=== PATIENT | female | born 1995 | race Caucasian/White ===

== ENCOUNTER → 2016-04-21 | Outpatient (CLI) | payer BC | LOC: MOB LAB 15:04 | PROVIDERS: ATTEND Obstetrics & Gynecology | DX: Z11.3 Encounter for screening for infections with a predominantly sexual mode of transmission (principal); N76.0 Acute vaginitis | CPT/HCPCS: 87491; 87591 ==

== ENCOUNTER 2018-05-25 12:47 | Inpatient (IN) ==
[2018-05-25] MEDS ORDERED: TERBUTALINE SULFATE 1 MG/1 ML SDV SUBCUT PRN (18:05)
[2018-05-25] MEDS ORDERED: NALOXONE 0.4 MG/1 ML VIAL IVP PRN (18:05)
[2018-05-25] MEDS ORDERED: CALCIUM CARBONATE 500 MG (TUMS) CHEWABLE TABLET PO PRN (18:05)
[2018-05-25] MEDS ORDERED: LIDOCAINE W/ SODIUM BICARB 0.5 ML SYR SUBD PRN (18:05)
[2018-05-25] MEDS ORDERED: Naloxone Inj 0.01 MG in Sodium Chloride 0.9% vial 1 ML IVP PRN (18:05)
[2018-05-25] MEDS ORDERED: LIDOCAINE HCL 2 % 10 ML JELLY URO-JECT TOPICAL PRN (18:05)
[2018-05-25] MEDS ORDERED: CefOXitin Inj 2 GM in Sodium Chloride 0.9% 100 ML IV PRN (18:05)
[2018-05-25] MEDS ORDERED: ePHEDrine Inj 50 MG/ML AMP IVP PRN (18:05)
[2018-05-25] MEDS ORDERED: diphenhydrAMINE 50 MG/1 ML VIAL IVP PRN (18:05)
[2018-05-25] MEDS ORDERED: ONDANSETRON 4 MG/2 ML VIAL IVP PRN (18:05)
[2018-05-25] MEDS ORDERED: BUTORPHANOL TARTRATE 2 MG/1 ML VIAL IVP PRN (18:05)
[2018-05-25] MEDS ORDERED: Nalbuphine Inj 20 MG/ML Ampule IVP PRN (18:05)
[2018-05-25] MEDS ORDERED: OXYTOCIN 10 UNIT/1 ML IM PRN (18:05)
[2018-05-25] MEDS ORDERED: Lidocaine 1% 10 MG/ML - 20 ML VIAL SUBCUT PRN (18:05)
[2018-05-25] MEDS ORDERED: CITRIC ACID/SODIUM CITRATE 30 ML CUP PO PRN (18:05)
[2018-05-25] MEDS ORDERED: METHYLERGONOVINE MALEATE 0.2 MG/1 ML VIAL IM PRN (18:05)
[2018-05-25] MEDS ORDERED: Carboprost Inj 250 MCG/ML AMP IM PRN (18:05)
[2018-05-25] MEDS ORDERED: Zolpidem Tab 5 MG TAB PO PRN (18:05)
[2018-05-25] MEDS ORDERED: MISOPROSTOL 200 MCG TABLET RECTAL PRN (18:05)
[2018-05-25] MEDS ORDERED: Metoclopramide Inj 10 MG/2 ML VIAL IV PRN (18:05)
[2018-05-25] MEDS ORDERED: Phenylephrine Inj 50 MCG in Sodium Chloride 0.9% vial 0.5 ML IVP PRN (18:05)
[2018-05-25] MEDS ORDERED: FAMOTIDINE 20 MG/2 ML VIAL IVP PRN ×2 (18:05)
[2018-05-25] MEDS ORDERED: Oxytocin 20 Units + LR 20 UNIT/1,000 ML BAG IV SCH (18:15)
[2018-05-25] MEDS ORDERED: Lactated Ringers-OB Dept 1,000 ML PRIMARY IV SCH (18:15)
[2018-05-25 18:57] LABS: Hematocrit [HCT] 34.2 % (37.0-47.0); MEAN CORPUSCULAR HEMOGLOBIN 28.6 PG (27-31); MEAN CORPUSCULAR HGB CONC 32.2 g/dL (33-37); MEAN CORPUSCULAR VOLUME 89.1 FL (81-99); RED BLOOD COUNT 3.84 10^6/uL (4.20-5.40)
[2018-05-25] MEDS: Misoprostol Tab 100 MCG TAB VAGINAL PRN ×2 (19:24→23:15)
[2018-05-26] MEDS: Misoprostol Tab 100 MCG TAB VAGINAL PRN (03:27)
[2018-05-26] MEDS: fentaNYL Inj 100 MCG/2 ML VIAL IV PRN ×7 (04:25→16:13)
--- NOTE | 2018-05-26 06:57 | OB.PROGRES ---
Interval History: The patient is a 22-year-old at 39 weeks gestation today who is admitted last evening for cervical ripening for an elective induction. I saw the patient yesterday in my office and her cervix was closed or perhaps just a fingertip. The patient and I had discussed elective induction of labor several weeks ago and then the patient brought up over the past couple weeks. Yesterday I asked the patient or inform the patient that she did not have to have an elective induction of labor and could wait another week to determine if there would be cervical change. The patient was adamant that she desired elective induction of labor with cervical ripening. The patient's has essentially been uncomplicated. Patient did receive the influenza vaccine. The patient stated that the father of the baby was different than the father of the baby 5 years ago. The father of the baby was 10 pounds at . The patient does believe that this baby is bigger than her baby who she delivered in November 2012. This baby is a boy and her previous delivery was a baby girl. Past medical history GERD. No hypertension, no asthma, no diabetes Past surgical history noncontributory No known drug allergies Tobacco-patient quit 6 months ago. Patient currently Vapes and is trying to quit now that she is . Rare alcohol but none since she found out she was . No drugs. 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 Patient has had chlamydia couple times and has been treated. OB history vaginal delivery x 1 of a 7 lbs. 5 oz. child. November 2012. No complications. Patient was taking Venlaxafine for anxiety and depression. Patient currently is doing well without SI or HI and is not taking medicine. No significant family history. Objective - Cervical Exam Cervical Exam: 04/18/-3 cephalic per nurse exam at about 0330 hrs. this morning. [place]: Uterine irritability or contractions every 2-3 minutes. The patient has received 3 doses of Cytotec-25 g per vagina since admission last evening. Heart Rate Interpretation Category: Category I - Labs CBC and BMP: 05/25/18 18:50 - Vital Signs Last Taken Vital Signs: Vital Signs - Last Taken Temperature 97.4 F 05/26/18 03:34 Pulse Rate 76 05/26/18 04:36 Respiratory Rate 16 05/26/18 04:36 Blood Pressure 113/71 05/26/18 04:36 Pulse Ox 98 05/26/18 04:36 - Additional Details Additional Details: The patient is currently sleeping and I did not wake her up. Assessment and Plan - Assessment / Plan Additional Assessment/Plan Details: Assessment: IUP 39 weeks gestation for elective induction of labor with cervical ripening. Category 1 heart rate tracing. There has been some change with the cervix from the posterior position 2 mid position and the cervix was 1 cm dilated according to the nurse at 0330 hrs. this morning. The patient's cervix was closed yesterday morning by my exam. I have not examined the patient this morning. Group B strep negative Rh+ Plan: Continue cervical ripening Continue to assess cervix intermittently Continue to observe heart rate tracing which is currently category 1 and h as been category 1 The patient and I did discuss that induction of labor with cervical ripening at 39 weeks gestation for elective reasons is documented in the literature and is safe. The patient has had a spontaneous vaginal delivery in 2012 with a different father of the baby. This father of the baby was 10 pounds at himself. The patient thinks that this baby is bigger than her baby girl who was delivered in 2013 and was 7 lbs. 5 oz. We did discuss cervical ripening and that slow cervical ripening with Cytotec was most prudent. We also discussed that if there was not significant cervical change and the heart tracing was category 1, the patient could elect to stop cervical ripening and induction of labor and go home if there was no significant progress. We discussed this previously in my office. We also discussed the risk of section for or maternal indications. We will continue to observe the patient closely.
--- NOTE | 2018-05-26 11:05 | OB.PROGRES ---
Interval History: The patient states that she can feel the contractions fairly strong every 2-3 minutes. This was relayed to me via the nurse. Objective - Cervical Exam Cervical Exam: -/-3 cephalic -my exam around 0910 hrs. as morning. Cervix was moderately firm and posterior to mid position [place]: Contractions every 2-4 minutes. Some couplets Heart Rate Interpretation Category: Category I - Labs CBC and BMP: 05/25/18 18:50 - Vital Signs Last Taken Vital Signs: Vital Signs - Last Taken Temperature 97.5 F 05/26/18 09:15 Pulse Rate 81 05/26/18 09:15 Respiratory Rate 16 05/26/18 09:15 Blood Pressure 117/67 05/26/18 09:15 Pulse Ox 98 05/26/18 09:15 Assessment and Plan - Assessment / Plan Additional Assessment/Plan Details: Assessment IUP 39 weeks for cervical ripening and induction of labor. There has been a small amount of cervical change since last evening when the cervix was closed. The patient has received 3 doses of Cytotec and the patient continues to contract although irregular. Plan: I have been waiting for the contractions to decrease in frequency to administer another dose of Cytotec. However, the contractions are not decrea sing in frequency currently. Pitocin augmentation starting at 1 milliunit and using Pitocin as a cervical ripening agent. I do not want to increase the Pitocin for labor currently. Cervical ripening still needs to occur. Continue to observe closely
[2018-05-26] MEDS ORDERED: Oxytocin 20 Units + LR 20 UNIT/1,000 ML BAG IV SCH (11:15)
[2018-05-26 14:13] VITALS: O2SAT 98
--- NOTE | 2018-05-26 16:58 | OB.PROGRES ---
Interval History: The patient has a lot of back pain with contractions and even without contractions. No gush of fluid. Objective - Cervical Exam Cervical Exam: 1-/-3 with cervix slightly less firm then this morning. [place]: Every 2-4 minutes with couplets Heart Rate Interpretation Category: Category I - Labs CBC and BMP: 05/25/18 18:50 - Vital Signs Last Taken Vital Signs: Vital Signs - Last Taken Temperature 97.5 F 05/26/18 14:40 Pulse Rate 64 05/26/18 15:00 Respiratory Rate 16 05/26/18 15:00 Blood Pressure 113/63 05/26/18 15:00 Pulse Ox 98 05/26/18 15:00 Assessment and Plan - Assessment / Plan Additional Assessment/Plan Details: Assessment: IUP 39 weeks with elective induction with cervical ripening. The cervix is gotten slightly softer with cervical ripening today but was still 1-2 cm dilated. Category 1 heart rate tracing GBS negative Rh+ Plan: The patient and I and her discussed options of continuing the Pitocin and cervical ripening all night. Turning off the Pitocin around 1800 hrs. and determining if the contractions decreased in frequency and then having the patient eat and then sleep and hopefully cervical ripening with Cytotec around 0300 hrs. in the morning. And the last option would be to sternal for Pitocin and if the contractions. The patient could go home with kick count precautions and labor precautions. The patient and her discussed this and they opted currently to turn the Pitocin off now and then determine if the contractions resolve. If the contractions resolve, the patient could eat and rest and then hopefully we can start cervical ripening again very early in the morning after she got several hours of rest. Then, the patient can get an epidural in the morning. If the patient does continue to contract and have a lot of pain with the contractions, the epidural would be placed tonight. The patient did relate to the nurse and myself that with her last labor, she had a lot of back pain. Her second stage of labor was only one hour. The patient does not recall of the baby was born in the OA or OP presentation.
[2018-05-26 17:55] VITALS: BP 113/68; RESP 18; TEMP 97.4
--- NOTE | 2018-05-26 19:19 | OB.PROGRES ---
Interval History: The patient states that her pain has decreased since the Pitocin was stopped and her contractions have decreased in frequency. The patient believes that she would like to go home for several days since her cervix is not ready for ripening. The baby is moving well. No vaginal bleeding. No leak of fluid. Objective - Cervical Exam Cervical Exam: Deferred cervix checked now. Previously was 1-2 and 40% and -3 station [place]: Irregular contractions. Patient currently off the monitor. Heart Rate Interpretation Category: Category I - Labs CBC and BMP: 05/25/18 18:50 - Vital Signs Last Taken Vital Signs: Vital Signs - Last Taken Temperature 97.4 F 05/26/18 17:10 Pulse Rate 68 05/26/18 17:10 Respiratory Rate 18 05/26/18 17:10 Blood Pressure 113/68 05/26/18 17:10 Pulse Ox 98 05/26/18 17:10 Assessment and Plan - Assessment / Plan Additional Assessment/Plan Details: Assessment: IUP 39 weeks with elective induction with cervical ripening with cervix ripened from closed or fingertip to 1-2 cm and 40% effaced. This was after 3 doses of Cytotec and Pitocin at 1-2 milliunits today. The patient is feeling better now that the Pitocin is stopped and her back pain is improved. The patient did receive several doses of IV fentanyl 50 g for pain throughout today. The patient is GBS negative The patient is Rh+ The patient desires to go home and currently stop the cervical ripening and induction of labor which is elective. The baby has had a category 1 heart rate tracing. Plan: The patient, her , the nurse, and myself discussed at length continuing cervical ripening for induction of labor versus going home and sched uling induction of labor for next week and thus allowing the patient's cervix to ripen and the possibility for the patient to go into labor over the next week. I discussed that this would be the patient's decision but the baby has had a category 1 heart rate tracing and the patient is doing much better now. I informed the patient that she would have strict kick count precautions and labor precautions if she went home or when she went home. The patient opted for discharge home. Close follow-up.
--- NOTE | 2018-05-26 19:22 | DCSUMMARY ---
Hospitalization Summary Admit Date: 05/25/18 Discharge Date: 05/26/18 Primary Diagnosis:: IUP 39 weeks with unsuccessful cervical ripening Hospital Course: Assessment: IUP 39 weeks with elective induction with cervical ripening with cervix ripened from closed or fingertip to 1-2 cm and 40% effaced. This was after 3 doses of Cytotec and Pitocin at 1-2 milliunits today. The patient is feeling better now that the Pitocin is stopped and her back pain is improved. The patient did receive several doses of IV fentanyl 50 g for pain throughout today. The patient is GBS negative The patient is Rh+ The patient desires to go home and currently stop the cervical ripening and induction of labor which is elective. The baby has had a category 1 heart rate tracing. Plan: The patient, her , the nurse, and myself discussed at length continuing cervical ripening for induction of labor versus going home and scheduling induction of labor for next week and thus allowing the patient's cervix to ripen and the possibility for the patient to go into labor over the next week. I discussed that this would be the patient's decision but the baby has had a category 1 heart rate tracing and the patient is doing much better now. I informed the patient that she would have strict kick count precautions and labor precautions if she went home or when she went home. The patient opted for discharge home. Close follow-up. / Postop Complications: Not applicable currently Complications: Category 1 heart rate tracing Exam - Vitals Vital Signs: Vital Signs Temperature 97.4 F Temperature Source Oral Pulse Rate [Pulse Oximeter] 68 Respiratory Rate 18 Blood Pressure [Left Arm] 113/68 Blood Pressure [Right Arm] 108/66 Pulse Ox 98 Oxygen Delivery Method Room Air Height 5 ft 7 in Weight 224 lb 3.2 oz
== END 2018-05-26 19:35 | disposition home or self-care (01) | DRG 833 ==
LOC: OBIP 17:27
PROVIDERS: ADMIT Obstetrics & Gynecology; ATTEND Obstetrics & Gynecology

== ENCOUNTER 2018-06-01 12:58 | Inpatient (IN) ==
[~2018-06-01 12:58] MED LIST: CITRIC ACID/SODIUM CITRATE 30 ML CUP PO ONE; CefOXitin Inj 2 GM in Sodium Chloride 0.9% 100 ML IV ONE; FAMOTIDINE 20 MG/2 ML VIAL IVP ONE; LIDOCAINE HCL 2 % 10 ML JELLY URO-JECT TOPICAL PRN; LIDOCAINE W/ SODIUM BICARB 0.5 ML SYR SUBD PRN; Lactated Ringers 1,000 ML PRIMARY IV ONE; Metoclopramide Inj 10 MG/2 ML VIAL IV ONE
[2018-06-01] MEDS ORDERED: Lactated Ringers 1,000 ML PRIMARY IV SCH (13:00)
[2018-06-01] MEDS ORDERED: Oxytocin 20 Units + LR 20 UNIT/1,000 ML BAG IV SCH ×2 (13:00→18:04)
[2018-06-01 14:12] LABS: Hematocrit [HCT] 35.2 % (37.0-47.0); Hemoglobin [HGB] 11.6 g/dL (12.0-16.0); MEAN CORPUSCULAR HEMOGLOBIN 29.1 PG (27-31); MEAN CORPUSCULAR VOLUME 88.2 FL (81-99); MEAN PLATELET VOLUME 11.4 FL (7.4-12.2); RED BLOOD COUNT 3.99 10^6/uL (4.20-5.40)
--- NOTE | 2018-06-01 15:43 | OB.PROGRES ---
Interval History: The patient is a 22-year-old at 39 6/7 weeks gestation today who was seen this morning for her nonstress test and ultrasound for TIMMY and estimated weight. The patient's recent history is that she was admitted last week for induction of labor with cervical ripening. The patient's cervix changed from a fingertip to closed to 1-2 cm and 40% effaced. The baby's head was -3 station or floating. Yesterday, the patient was seen and her cervical exam was 1 cm and 40% and -3 station or the baby's head was floating. With the u ltrasound today showing the estimated weight to be 9 lbs. 2 oz. and the TIMMY 25 cm, the patient brought up that she would like a section. The patient and I and her nurse discuss this in detail this morning. Please see that note. It was decided that the patient would have the primary today. The patient had unsuccessful cervical ripening or failed cervical ripening last week. The patient was given the option of induction of labor with cervical ripening again. The patient's has essentially been uncomplicated. Patient did receive the influenza vaccine. The patient stated that the father of the baby was different than the father of the baby 5 years ago. The father of the baby was 10 pounds at . The patient does believe that this baby is bigger than her baby who she delivered in November 2012. This baby is a boy and her previous delivery was a baby girl. Past medical history GERD. No hypertension, no asthma, no diabetes Past surgical history noncontributory No known drug allergies Tobacco-patient quit 6 months ago. Patient currently Vapes and is trying to quit now that she is . Rare alcohol but none since she found out she was . No drugs. 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 Patient has had chlamydia couple times and has been treated. OB history vaginal delivery x 1 of a 7 lbs. 5 oz. child. November 2012. No complications. Patient was taking Venlaxafine for anxiety and depression. Patient currently is doing well without SI or HI and is not taking medicine. No significant family history. Objective - Cervical Exam Cervical Exam: /-3 cephalic. The baby's head was not in the patient's pelvis. This exam was yesterday. Patient politely declined cervical exam today. [place]: Irregular contractions. Heart Rate Interpretation Category: Category I - Labs CBC and BMP: 06/01/18 14:05 - Vital Signs Last Taken Vital Signs: Vital Signs - Last Taken Temperature 97.4 F 06/01/18 12:56 Pulse Rate 86 06/01/18 12:56 Respiratory Rate 20 06/01/18 12:56 Blood Pressure 121/78 06/01/18 12:56 Pulse Ox 98 06/01/18 12:56 - Additional Details Additional Details: Nontoxic appearing. Abdomen soft and nontender and gravid without guarding or rebound Assessment and Plan - Assessment / Plan Additional Assessment/Plan Details: Assessment: IUP 39-6/7 weeks with unsuccessful cervical ripening last week over 24 hours with a cervix initially fingertip to closed and getting to 1-2 cm dilated and 40% effaced. The patient requested to go home last week. Today, the patient had a nonstress test which was category 1 after the baby woke up and estimated weight was 9 lbs. 2 oz. and TIMMY was 25 cm. The patient, the nurse, and I discussed the risks, benefits, alternatives and indication of a induction of labor with cervical ripening and section for arrest of dilation, arrest of descent or nonreassuring status. We also discussed shoulder dystocia and different procedures if shoulder dystocia were to occur. I discussed that I would not feel comfortable lacing forceps or a vacuum secondary to the estimated weight of 9 lbs. 2 oz. or 4173 g. The patient is not a gestational diabetic. Her one-hour Glucola was 107. We also discussed the risks, benefits, alternatives and indications for a primary section. The risk of, but not limited to, infection, bleeding, pain postoperatively, damage to bowel, bladder, nerve, vessel, nicking the baby, risk of hemorrhage necessitating blood transfusion with associated risk, the risk of hysterectomy secondary to hemorrhage or infection, blood clots to the legs or lungs, wound healing problems her wound seroma or wound infection requiring wound VAC and wound clinic visits. The possibility of necrotizing fasciitis requiring other surgeries for control of infection and the possibility of transfer to a tertiary care hospital for higher level of care if the severe infection occurred and the risk of was all discussed with the patient. We discussed that the risks are many but they occur not very often. The patient expressed understanding with this. Consent forms were signed. Plan: After the risks, benefits, alternatives and indication of a primary C- section versus induction of labor and the risk of both were discussed with the patient in detail, the patient opted for a primary low transverse section. Consent forms were signed. The plan is to proceed to the operating room when the operating crew was ready. Questions were answered.
--- NOTE | 2018-06-01 15:47 | OB.OP.NOTE ---
Operative Report Surgeon: Vinicio Powder Core Tester: Ajay Larson MD Anesthesia Type: Regional (With Duramorph) Anesthesia Provider: Prem Handy CRNA Surgery Date: 06/01/18 Preoperative Diagnosis: IUP 39-6/7 weeks. Unsuccessful or failed cervical ripening last week for greater than 24 hours. Patient desires primary section. Estimated weight 4173 g. Hydramnios with TIMMY of 25 cm Postoperative Diagnosis: Same Procedure: Primary low transverse section Estimated Blood Loss (mL): 800 Fluids: 1000 mL of lactated Ringer in operating room. Mefoxin 2 g IV prior to section. 25 mL of urine in the operating room. Patient just voided prior to operating room. Copious amounts of clear amniotic fluid Complications: None apparent Findings at Surgery: Normal uterus tubes and ovaries Male infant with Apgars of 6 and 9 Weight was 8 lbs. 5 oz. or 3774 g ABG showed a pH of 7.32, PCO2 43, HCO3 of 22, base excess -4 Clear amniotic fluid-copious amounts of clear amniotic fluid Indications for the Procedure: IUP 39-6/7 weeks with unsuccessful cervical ripening last week over 24 hours with a cervix initially fingertip to closed and dilating to 1-2 cm dilated and 40% effaced. The patient requested to go home last week. Today, the patient had a nonstress test which was category 1 after the baby woke up and estimated weight was 9 lbs. 2 oz. and TIMMY was 25 cm. The patient, the nurse, and I discussed the risks, benefits, alternatives and indication of a induction of labor with cervical ripening and section for arrest of dilation, arrest of descent or nonreassuring status. We al so discussed shoulder dystocia and different procedures if shoulder dystocia were to occur. I discussed that I would not feel comfortable lacing forceps or a vacuum secondary to the estimated weight of 9 lbs. 2 oz. or 4173 g. The patient is not a gestational diabetic. Her one-hour Glucola was 107. We also discussed the risks, benefits, alternatives and indications for a primary section. The risk of, but not limited to, infection, bleeding, pain postoperatively, damage to bowel, bladder, nerve, vessel, nicking the baby, risk of hemorrhage necessitating blood transfusion with associated risk, the risk of hysterectomy secondary to hemorrhage or infection, blood clots to the legs or lungs, wound healing problems her wound seroma or wound infection requiring wound VAC and wound clinic visits. The possibility of necrotizing fasciitis requiring other surgeries for control of infection and the possibility of transfer to a tertiary care hospital for higher level of care if the severe infection occurred and the risk of was all discussed with the patient. We discussed that the risks are many but they occur not very often. The patient expressed understanding with this. Consent forms were signed. Plan: After the risks, benefits, alternatives and indication of a primary C- section versus induction of labor and the risk of both were discussed with the patient in detail, the patient opted for a primary low transverse section. Consent forms were signed. The plan is to proceed to the operating room when the operating crew was ready. Questions were answered. Description of Procedure: The patient was taken to the operating room after the risks, benefits, alternatives and indications of a primary section were discussed with the patient in detail. Consent forms were signed previously. The risk, but not limited to, of infection, bleeding, pain postoperatively or intraoperatively, bleeding, hemorrhage requiring blood transfusion with associated risks, hysterectomy secondary to hemorrhage or infection postoperatively, damage to bowel, bladder, nerve, vessel, ureter, nicking the baby, serious infection r equiring antibiotics postoperatively and possible transfer to a tertiary care hospital, the need to transfer the baby to a tertiary care hospital for intensive care unit care secondary to lung immaturity or extremely labile glucoses or temperature instability were discussed with the patient. This would also mean separation of the patient from her since the patient wo uld be here at [facility] status post a and the baby would be in [place], [place] for NICU care. Additionally, blood clots to the legs or lungs and the low risk of was discussed with the patient. The patient expressed understanding with the above. Consent forms have been signed previously. The patient underwent spinal anesthesia in the usual fashion. heart tones were checked and they were normal. The patient was prepped. Prince catheter was placed. The patient was then draped sterilely. The patient was tested and anesthesia was found to be adequate. A Pfannenstiel skin incision was made. The subcutaneous tissue was bovied to the fascia. The fascia was nicked in the midline and extended laterally bilaterally using the Yankauer retractor to elevate the fascia off of the rectus muscles. Deepthi clamps were then placed on either side of the midline on the fascia superiorly and the rectus muscles were dissected off of the fascia using the Bovie and bluntly. The same was done for the fascia inferiorly. The rectus muscles were gently . The peritoneum was then entered bluntly. The peritoneum was then stretched. I then placed my hand intra- abdominally to check for adhesions between the uterus and the anterior abdominal wall and there were none. The Kevin retractor was then placed. The lower uterine segment of the uterus was then evaluated. A bladder flap was created using Metzenbaum scissors and pickups. The bladder flap was gently dissected inferiorly. A low transverse uterine incision was then made. Amniotomy was performed and there was clear amniotic fluid. The lower uterine segment was then stretched. I then placed my hand intrauterine along the baby's head until I got to the vertex of the baby's head. The baby's head was gently elevated and then elevated out of the uterine incision. The mouth and nose were bulb suctioned. The posterior shoulder and then anterior shoulder were delivered atraumatically and then the baby was slowly delivered atraumatically through the uterine incision. It should be noted that the baby's head was not in the patient's pelvis. The baby's head was still floating. The mouth and nose were bulb suctioned after delivery of the infant. Delayed cord clamping was allowed for for greater than 30 seconds. The cord was then clamped and cut and the baby was handed off to the waiting nurses and proof machine operator supervisor. A section of cord was then clamped and cut for cord gases and then cord blood was obtained. The placenta was then delivered with manual retraction. Membranes were teased and removed. The uterus was then exteriorized. The uterine incision was then examined. The uterus incision was then closed with 0 Vicryl in a running locking fashion. A second layer was then imbricated with 0 Vicryl suture. There was good hemostasis. There again appeared to be good hemostasis of the uterine incision. There were a few areas that a [id number] suture of 0 Vicryl suture was used to allow for even better hemostasis. A few areas were bovied for hemostasis away from the suture. The fallopian tubes and ovaries were then examined and appeared normal. Attention was then turned to the patient's uterine incision again and there was good hemostasis. Irrigation posterior to the uterus and then was suctioned. The uterus was then placed back into the abdomen. The patient's right paracolic gutter was then irrigated and suctioned. Good hemostasis noted. The patient's left paracolic gutter was then irrigated and suctioned. Good hemostasis. The uterine incision was then examined again and irrigated. There appeared to be good hemostasis. The Kevin retractor was then removed. The peritoneum was then identified and closed from cephalad to caudal with 3-0 Vicryl suture in a running fashion. The patient's fascia was then examined. Subfascially there was good hemostasis. The fascia was then closed with looped 0 PDS suture. I started on the patient's left angle of the fascia. Care was taken to incorporate both layers of fascia at the angle. Then the fascia was closed in a running suture to the right angle. A Deepthi clamp was previously placed on the right angle of the fascia. The 0 PDS suture was placed just past the Deepthi clamp. One section of suture was cut and then the looped 0 PDS suture was placed through the fascia to the inferior side of the fascial incision and then the needle was cut and then the 2 ends of the suture were tied at least 8 times to ensure integrity. The fascia appeared intact. The subcutaneous tissue was then examined and there were a few bleeders that were bovied. The subcutaneous tissue was then irrigated and then suctioned. The subcutaneous tissue was then closed with 3-0 Vicryl suture in a running fashion. The skin was then examined and a few areas were bovied. The incision was cleaned with a moist lap sponge. The skin was then closed with 2-0 Stratafix suture in a subcuticular fashion starting in the midline and working towards the left side and right side. The incision appeared to be well approximated. Skin prep and then half-inch Steri-Strips were placed over the incision. Sponge, instrument, and needle count were correct 2 The radiofrequency wand was also used to ensure that the count was correct. Silverlon dressing was placed over the Steri-Stripped incision site and then an ABD pad and then paper tape without stretching the paper tape to avoid skin irritation. A vaginal exam was then completed and the uterus was expressed of any clot or debris. There was some dark blood expressed. The patient was cleaned of any clot or debris. Prince catheter was secured. The patient was then brought to the PACU in stable condition. Plan: The patient will recover in the PACU and then the room. The patient will be observed closely postoperatively.
[2018-06-01] MEDS ORDERED: MORPHINE SULFATE/PF 10 MG/10 ML AMPULE ONE (15:55)
[2018-06-01] MEDS ORDERED: OXYTOCIN 10 UNIT/1 ML ONE (15:59)
[2018-06-01] MEDS ORDERED: ePHEDrine Inj 50 MG/ML AMP ONE ×2 (15:59→16:20)
[2018-06-01] MEDS ORDERED: Sodium Chloride 0.9% vial 10 ML ONE (15:59)
[2018-06-01] MEDS ORDERED: KETOROLAC 30 MG/1 ML VIAL ONE (16:44)
--- NOTE | 2018-06-01 17:18 | CRNA.PROCE ---
Central Neuraxis Block Placemt - - Safety Measures: Time Out Taken - - Type of Block: Subarachnoid Reason for Block: Surgical Moniters Used During Block: EKG, SPO2, NIBP Positioning: Sitting Skin Prep Used: ChloroPrep Draped: No Skin Infiltration - Enter Amount Used in Comment Field: 1% Xylocaine (mL): Yes (skin wheal) Spinal Needle Used: 25 Gurvinder 80 mm Local Anesthetic - Enter Amount Used in Comment Field: 0.75 % Bupivacaine with Dextrose (ml): Yes (2ml) Additive Used - Enter Amount Used in Comment Field: Preservative Free Morphine (mg): Yes (.2mg) Bioclusive Dressing Applied: No Anesthesia Time - Other Weight: 102.421 kg Height: 5 ft 8 in Body Mass Index (BMI): 34.3
--- NOTE | 2018-06-01 17:20 | CRNA.PROGR ---
Anesthesia Time - Procedure/Recovery Time Start Date: 06/01/18 End Date: 06/01/18 Anesthesia : Time In: 16:06 Anesthesia : Time Out: 17:15 Anesthesia : Total Time: 69 - Total Anesthesia Time Total Anesthesia Time (minutes): 69 - Other Weight: 102.421 kg Height: 5 ft 8 in Body Mass Index (BMI): 34.3 Physical Status: P2 Anesthesia Type: Spinal Block Obstetrics: C/S anesthesia only
--- NOTE | 2018-06-01 17:21 | CRNA.PROGR ---
Post Anesthesia Phase II - Post Anesthesia Phase II Patient Stable and Discharged To: Phase II Temperature: 97.4 F Pulse Rate: 88 Respiratory Rate: 20 Blood Pressure: 111/74 Pulse Ox: 98 Total Pebbles Score at Discharge: 8 Post Anesthesia Discharge Criteria Met: Yes
[2018-06-01] MEDS ORDERED: LANOLIN HPA 40 GM TUBE TOPICAL PRN (18:04)
[2018-06-01] MEDS ORDERED: diphenhydrAMINE 25 MG CAPSULE PO PRN (18:04)
[2018-06-01] MEDS ORDERED: BUTORPHANOL TARTRATE 2 MG/1 ML VIAL IVP PRN (18:04)
[2018-06-01] MEDS ORDERED: CALCIUM CARBONATE 500 MG (TUMS) CHEWABLE TABLET PO PRN (18:04)
[2018-06-01] MEDS ORDERED: DIPH,PERTUSS,TET(ADACEL) VAC/PF 0.5 ML (Tdap) IM ONE (18:04)
[2018-06-01] MEDS ORDERED: D5-LR 1,000 ML PRIMARY IV SCH (18:04)
[2018-06-01] MEDS ORDERED: Naloxone Inj 0.01 MG, Sodium Chloride 0.9% vial 1 ML IVP PRN ×2 (18:04)
[2018-06-01] MEDS ORDERED: diphenhydrAMINE 50 MG/1 ML VIAL IV PRN (18:04)
[2018-06-01] MEDS ORDERED: ONDANSETRON 4 MG/2 ML VIAL IVP PRN (18:04)
[2018-06-01] MEDS ORDERED: FAMOTIDINE 20 MG/2 ML VIAL IVP PRN (18:04)
[2018-06-01] MEDS: Nalbuphine Inj 20 MG/ML Ampule IVP PRN ×3 (18:43→21:14)
[2018-06-01] MEDS: KETOROLAC 15 MG/1 ML VIAL IVP SCH (22:20)
[2018-06-02] MEDS: KETOROLAC 15 MG/1 ML VIAL IVP SCH ×3 (04:04→16:42)
[2018-06-02 05:03] LABS: Hemoglobin [HGB] 9.4 g/dL (12.0-16.0); MEAN CORPUSCULAR HEMOGLOBIN 28.9 PG (27-31); MEAN CORPUSCULAR HGB CONC 32.4 g/dL (33-37); MEAN CORPUSCULAR VOLUME 89.2 FL (81-99); RED BLOOD COUNT 3.25 10^6/uL (4.20-5.40)
--- NOTE | 2018-06-02 08:01 | OB.PROGRES ---
Subjective Post Day: 1 Pain Management: IV Toradol, Duramorph Prince Catheter: Yes Flatus: No Lochia Color: Rubra/Red Scant < 10 ml Diet: Regular Feeding Method: Exculsively Ambulating: Yes Concerns / Additional Information: The patient has been up once in the room. She still has her Prince in place. No flatus yet. She is tolerating a regular diet well. The patient states that she feels well. Her vaginal bleeding is minimal now. Objective - General General Appearance: POSITIVE: No Acute Distress, Cooperative - Respiratory Respiratory Exam: POSITIVE: Clear to Auscultation - Bilaterally - Reflexes Clonus (indicate extremity in comment field): Absent (No Homans) - Abdomen Abdominal Wound Assessment: Silverlone Dressing - Fundus/Lochia/Perineum Uterus Consistency: Firm Assesstment / Plan Assessment / Plan: Assessment: Postoperative day status post primary low transverse section. Patient doing well. H&H was 9 and 29. Plan: Prince will be discontinued a little bit later. Ambulate 4 times today Close observation Iron will be started tomorrow or the next day. Patient is asymptomatic with the mild to moderate anemia.
[2018-06-02] MEDS: Prenatal Multivitamin Tab 1 TAB TAB PO SCH (09:47)
[2018-06-02] MEDS: DOCUSATE 100 MG CAPSULE PO SCH ×2 (09:47→21:32)
--- NOTE | 2018-06-02 09:47 | CRNA.PROGR ---
Anesthesia Note - Progress Notes Anesthesia Progress Note: Post OP Anesthesia Note Pt is sitting up in bed, awake and oriented. She has been up ambulating, tolerating a regular diet. States that her pain is well under control. She denies any residual problems from the SAB. Current VS are stable. Vital Signs - Last Taken Temperature 98.0 F 06/02/18 04:53 Pulse Rate 76 06/02/18 04:53 Respiratory Rate 18 06/02/18 04:53 Blood Pressure 107/68 06/02/18 04:53 Pulse Ox 97 06/02/18 04:53
[2018-06-02] MEDS: HYDROcodone-APAP 5 MG -325 MG TABLET PO PRN ×2 (15:26→21:32)
[2018-06-02] MEDS: IBUPROFEN 800 MG TABLET PO SCH (21:32)
[2018-06-03] MEDS: HYDROcodone-APAP 5 MG -325 MG TABLET PO PRN ×5 (01:03→19:30)
--- NOTE | 2018-06-03 06:33 | OB.PROGRES ---
Subjective Post Day: 2 Pain Management: PO Prince Catheter: No Flatus: Yes Lochia Color: Rubra/Red Scant < 10 ml Diet: Regular Feeding Method: Exculsively Ambulating: Yes Concerns / Additional Information: The patient stated that she had some lightheadedness when she was showering. No syncope. The patient has been up twice since that time and is felt and done better. The patient is trying to breast-feed. Positive flatus. Tolerating regular diet. The patient stated that taking 2 Percocet helped with her pain more than just taking one Percocet. Objective - General General Appearance: POSITIVE: No Acute Distress, Cooperative - Cardiovacular Cardiovascular Exam: POSITIVE: RRR Extremities: Negative Marcy's - Bilaterally - Respiratory Respiratory Exam: POSITIVE: Clear to Auscultation - Bilaterally - Abdomen Abdominal Wound Assessment: Silverlone Dressing Other Abdominal Exam Details: Abdomen is soft without guarding or rebound with appropriate tenderness Assesstment / Plan Assessment / Plan: Assessment: Postoperative day #2 status post primary low transverse section. The patient has mild to moderate anemia. Vital signs are okay. Plan: Continue care today. Ambulate at least 4 times. Start ferrous sulfate 325 mg twice a day Colace I will not discharge the patient today.
[2018-06-03] MEDS: IBUPROFEN 800 MG TABLET PO SCH ×3 (07:07→22:08)
[2018-06-03] MEDS: Prenatal Multivitamin Tab 1 TAB TAB PO SCH (10:02)
[2018-06-03] MEDS: FERROUS SULFATE 325 MG TABLET PO SCH ×2 (10:02→20:50)
[2018-06-03] MEDS: DOCUSATE 100 MG CAPSULE PO SCH ×2 (10:03→20:50)
[2018-06-04] MEDS: HYDROcodone-APAP 5 MG -325 MG TABLET PO PRN ×3 (01:15→12:16)
[2018-06-04 01:38] VITALS: O2SAT 97
[2018-06-04] MEDS: IBUPROFEN 800 MG TABLET PO SCH (07:25)
[2018-06-04] MEDS: DOCUSATE 100 MG CAPSULE PO SCH (09:12)
[2018-06-04] MEDS: FERROUS SULFATE 325 MG TABLET PO SCH (09:12)
[2018-06-04] MEDS: Prenatal Multivitamin Tab 1 TAB TAB PO SCH (09:12)
[2018-06-04 09:20] VITALS: BP 114/64; RESP 16; TEMP 97.8
--- NOTE | 2018-06-04 09:57 | OB.PROGRES ---
Subjective Post Day: 3 Pain Management: PO Prince Catheter: No Flatus: Yes Lochia Color: Serosa/Brown Scant < 10 ml Diet: Regular Cashion Feeding Method: Exculsively Ambulating: Yes Concerns / Additional Information: The breast-feeding is going better according to the nurses. The patient states that she is doing much better and would like to go home. She is breast-feeding better. She still needs to take oxycodone consistently help with her pain control. Objective - General General Appearance: POSITIVE: No Acute Distress, Cooperative - Cardiovacular Cardiovascular Exam: POSITIVE: RRR Edema: +1 Pedal Edema Extremities: Negative Marcy's - Bilaterally - Respiratory Respiratory Exam: POSITIVE: Clear to Auscultation - Bilaterally - Abdomen Bowel Sounds: Present Abdominal Wound Assessment: Silverlone Dressing Other Abdominal Exam Details: Patient's abdomen is soft and nontender without guarding rebound. Appropriate tenderness status post . Assesstment / Plan Assessment / Plan: Assessment: Postoperative day #3 status post primary low transverse section. Patient has mild to moderate anemia which is normal. Patient is asymptomatic currently. The patient has been afebrile. Patient has her Silverlon dressing in place. The patient would like to go home today. The patient states that she has good support at home. Plan: Discharge home today. Usual post-operative instructions The patient has a follow-up appointment with me next week scheduled. The patient should show at 1300 hrs. on 06/08/2018. Or a little earlier. Patient's discharge medications are: Oxycodone/Tylenol 5/325 one to 2 tablets by mouth every 6 hours when necessary pain #40 were dispensed no refills Ibuprofen 800 mg 1 tablet by mouth 3 times a day for 5 days with food or milk then 3 times a day with food or milk as needed #30 and 2 refills Ferrous sulfate 325 mg 1 tablet by mouth twice a day for 30 days Colace 100 mg capsule 1 capsule by mouth daily to twice a day when necessary constipation The patient should continue a multivitamin or vitamin daily. The patient should drink at least 8 glasses of water per day. If the patient's Silverlon dressing starts to peel off or not adhese well, the patient should gently remove this or call and we can remove this. The patient should return to the ER or call the office for fever, increasing abdominal pain, or not feeling well.
--- NOTE | 2018-06-04 10:07 | DCSUMMARY ---
Hospitalization Summary Admit Date: 06/01/18 Discharge Date: 06/04/18 Primary Diagnosis:: IUP 39-6/7 weeks, patient desires primary secti Secondary Diagnosis:: EFW was 9 lbs. 2 oz. by ultrasound. Patient with hydramnios Primary Surgery and Date: 06/01/2018 Delivery Type: Hospital Course: Assessment: Postoperative day #3 status post primary low transverse section. Patient has mild to moderate anemia which is normal. Patient is asymptomatic currently. The patient has been afebrile. Patient has her Silverlon dressing in place. The patient would like to go home today. The patient states that she has good support at home. Plan: Discharge home today. Usual post-operative instructions The patient has a follow-up appointment with me next week scheduled. The p atient should show at 1300 hrs. on 06/08/2018. Or a little earlier. Patient's discharge medications are: Oxycodone/Tylenol 5/325 one to 2 tablets by mouth every 6 hours when necessary pain #40 were dispensed no refills Ibuprofen 800 mg 1 tablet by mouth 3 times a day for 5 days with food or milk then 3 times a day with food or milk as needed #30 and 2 refills Ferrous sulfate 325 mg 1 tablet by mouth twice a day for 30 days Colace 100 mg capsule 1 capsule by mouth daily to twice a day when necessary constipation The patient should continue a multivitamin or vitamin daily. The patient should drink at least 8 glasses of water per day. If the patient's Silverlon dressing starts to peel off or not adhese well, the patient should gently remove this or call and we can remove this. The patient should return to the ER or call the office for fever, increasing abdominal pain, or not feeling well. / Postop Complications: Patient did well postoperatively [place] Complications: The did well Exam - Vitals Vital Signs: Vital Signs Temperature 97.8 F Temperature Source Oral Pulse Rate [Pulse Oximeter] 76 Pulse Rate 90 Respiratory Rate 16 Blood Pressure [Left Arm] 114/64 Blood Pressure 109/78 Pulse Ox 97 Oxygen Flow Rate RA Oxygen Delivery Method Room Air Height 5 ft 8 in Weight 225 lb 12.8 oz
== END 2018-06-04 13:10 | disposition home or self-care (01) | DRG 788 ==
LOC: OBOR 12:58 → OBIP 17:14
PROVIDERS: ADMIT Obstetrics & Gynecology; ATTEND Obstetrics & Gynecology